=== PATIENT | male | born 1995 | race African-American/Black ===

== ENCOUNTER 2018-10-27 12:28 | Emergency (ER) | payer OTHER ==
[2018-10-27 12:41] VITALS: BP 180/99
--- NOTE | 2018-10-27 13:09 | EDM.PDOC ---
ED HPI GENERAL MEDICAL PROBLEM - General Chief Complaint: Chest Pain Stated Complaint: CHEST PAIN Time Seen by Provider: 10/27/18 13:06 Source of Information: Reports: Patient History Limitations: Reports: No Limitations - History of Present Illness INITIAL COMMENTS - FREE TEXT/NARRATIVE: sudden onset mid sternal chest pain while walking and got dizzy which gone but CP still there, seems to hurt more on deep breathing. denies energy drinks. denies URI Sx. Mid-Sternal Chest Pain Score (Numeric/FACES): 5 - Related Data Allergies Allergy/AdvReac Type Severity Reaction Status Date / Time No Known Allergies Allergy Verified 10/27/18 12:35 Home Meds: Home Meds Hydrocodone/Acetaminophen [[place] 10-325 Tablet] 1 each PO BID PRN 10/27/18 [ History] hydroCHLOROthiazide [Hydrochlorothiazide] 25 mg PO DAILY 10/27/18 [History] Past Medical History - Past Health History Medical/Surgical History: Denies Medical/Surgical History Cardiovascular History: Reports: Hypertension Musculoskeletal History: Reports: Back Pain, Chronic Social & Family History - Tobacco Use Smoking Status *Q: Never Smoker Second Hand Smoke Exposure: No - Recreational Drug Use Recreational Drug Use: No ED ROS GENERAL - Review of Systems Review Of Systems: ROS reveals no pertinent complaints other than HPI. ED EXAM, GENERAL - Physical Exam Exam: See Below Exam Limited By: No Limitations General Appearance: Alert, WD/WN, Mild Distress, Other ([place]) Eye Exam: Bilateral Eye: PERRL (pupils ess ER @ 4mm) Ears: Hearing Grossly Normal Throat/Mouth: Normal Voice, No Airway Compromise Head: Atraumatic Neck: Non-Tender, Full Range of Motion Respiratory/Chest: No Respiratory Distress, No Accessory Muscle Use, Rhonchi. No: Decreased Breath Sounds Cardiovascular: Regular Rate, Rhythm GI/Abdominal: Soft, Non-Tender Neurological: Alert, Oriented, Normal Cognition, Normal Gait, No Motor/Sensory Deficits Psychiatric: Flat Affect Skin Exam: Warm, Dry, Normal Color Lymphatic: No Adenopathy Course - Vital Signs Last Recorded V/S: Last Vital Signs Temp 35.7 C 10/27/18 12:32 Pulse 107 H 10/27/18 12:40 Resp 18 10/27/18 12:40 BP 180/99 H 10/27/18 12:40 Pulse Ox 99 10/27/18 12:40 - Orders/Labs/Meds Orders: Active Orders 24 hr Category Date Time Status EKG Documentation Completion [RC] STAT Care 10/27/18 13:05 Active Chest 1V Frontal [CR] Urgent Exams 10/27/18 13:06 Taken Labs: Laboratory Tests 10/27/18 10/27/18 10/27/18 Range/Units 13:15 13:15 13:15 WBC 8.1 (5.0-10.0) 10^3/uL RBC 5.57 (4.6-6.2) 10^6/uL Hgb 16.0 (14.0-18.0) g/dL Hct 46.2 (40.0-54.0) % MCV 82.9 (80-100) fL MCH 28.7 (27.0-34.0) pg MCHC 34.6 (33.0-35.0) g/dL Plt Count 232 (150-450) 10^3/uL Neut % (Auto) 56.5 (42.2-75.2) % Lymph % (Auto) 33.3 (20.5-50.1) % [place] % (Auto) 7.1 (2-8) % Eos % (Auto) 2.7 (1.0-3.0) % Baso % (Auto) 0.4 (0.0-1.0) % D-Dimer, Quantitative < 100 (0-400) ng/mL Sodium 137 (135-145) mmol/L Potassium 3.4 L (3.6-5.0) mmol/L Chloride 102 (101-111) mmol/L Carbon Dioxide 25.0 (21.0-31.0) mmol/L Anion Gap 13.4 BUN 14 (7-18) mg/dL Creatinine 1.1 (0.6-1.3) mg/dL Est Cr Clr Drug Dosing 95.06 mL/min Estimated GFR (MDRD) > 60 BUN/Creatinine Ratio 12.72 Glucose 120 H (74-105) mg/dL Calcium 9.3 (8.4-10.2) mg/dl Total Bilirubin 1.1 H (0.2-1.0) mg/dL AST 33 (10-42) IU/L ALT 28 (10-60) IU/L Alkaline Phosphatase 66 (42-121) IU/L Troponin I < 0.02 (0.00-0.02) ng/ml Total Protein 7.5 (6.7-8.2) g/dl Albumin 4.0 (3.2-5.5) g/dl Globulin 3.5 Albumin/Globulin Ratio 1.14 - Re-Assessments/Exams Free Text/Narrative Re-Assessment/Exam: 10/27/18 14:35 results discussed with pt who is feeling much better now. Departure - Departure Time of Disposition: 14:35 Disposition: Home, Self-Care 01 Clinical Impression: Atypical chest pain Instructions: Chest Wall Pain, [id number] Forms: ED Department Discharge Additional Instructions: 1) avoid vigorous activity 24 hours 2) follow up with family doctor - My Orders Last 24 Hours: My Active Orders 10/27/18 13:05 EKG Documentation Completion [RC] STAT 10/27/18 13:06 Chest 1V Frontal [CR] Urgent - Assessment/Plan Last 24 Hours: My Active Orders 10/27/18 13:05 EKG Documentation Completion [RC] STAT 10/27/18 13:06 Chest 1V Frontal [CR] Urgent
[2018-10-27 13:41] LABS: ANION GAP 13.4; CHLORIDE,CL 102 mmol/L (101-111); SODIUM,NA 137 mmol/L (135-145)
== END 2018-10-27 14:47 | disposition home or self-care (01) ==
LOC: DL.ED 12:28
DX: R07.2 Precordial pain (principal); I10 Essential (primary) hypertension; Z79.899 Other long term (current) drug therapy
CPT/HCPCS: 36415; 71045; 80053; 84484; 85025; 85379; 93005; 99285-25